=== PATIENT | female | born 1955 | race American Indian/Alaskan Native ===

== ENCOUNTER 2020-01-06 06:22 | Day surgery (SDC) | payer MEDICARE ==
[~2020-01-06 06:22] MED LIST: CELECOXIB 200 MG CAP PO NR; GABAPENTIN 300 MG CAP PO NR; LACTATED RINGERS 1,000 ML IV SCH; MAGNESIUM OXIDE 400 MG TAB PO SCH; MIDAZOLAM 2 MG/2 ML INJ IV NR; ceFAZolin/Water 2 GM/20 ML 2 GM/20 ML SYRINGE IV NR; fentaNYL 100 MCG/2 ML INJ IV PRN
--- NOTE | 2020-01-06 07:18 | Anesthesia Day of Surgery ---
Anesthesia Day of Surgery - Day of Surgery Patient Examined: Yes Patient H&P Reviewed: Yes Patient is NPO: Yes
--- NOTE | 2020-01-06 07:22 | Anesthesia Consultation ---
Anesthesia Consult and Med Hx Date of service: 01/06/20 - Airway Anesthetic Teeth Evaluation: Edentulous ROM Head & Neck: Adequate Mental/Hyoid Distance: Adequate Mallampati Class: Class II Intubation Access Assessment: Good - Pre-Operative Health Status ASA Pre-Surgery Classification: ASA3 Proposed Anesthetic Plan: General Nerve Block: PEC - Pulmonary Hx Smoking: Yes (SINCE AGE 20; 1 CIG EVERYNIGHT) Hx Respiratory Symptoms: No (Poor ambulation because of CVA; unable to climb stairs) - Central Nervous System CVA: Yes (2014; L SIDE WEAKNESS) Hx Back Pain: Yes (LOWER) Hx Psychiatric Problems: No - Hematic Hx Sickle Cell Disease: Yes (TRAIT) - Other Systems Hx Alcohol Use: Yes Hx Substance Use: No Hx Cancer: Yes Hx Obesity: Yes (BMI 39)
[2020-01-06] MEDS ORDERED: BUPIVACAINE-EPINEPHRINE/PF 0.5%-1:200,000 (30 ML) VIAL INFILTRATI ONE (07:30)
[2020-01-06] MEDS ORDERED: dexAMETHasone 20 MG/5 ML VIAL ONE (07:53)
[2020-01-06] MEDS ORDERED: LIDOCAINE MPF (2%) 20 MG/1 ML VIAL 5 ML ONE (07:53)
[2020-01-06] MEDS ORDERED: fentaNYL 250 MCG/5 ML INJ ONE (07:53)
[2020-01-06] MEDS ORDERED: NEOSTIGMINE 10MG/10 ML INJ MDV ONE (07:53)
[2020-01-06] MEDS ORDERED: SUCCINYLCHOLINE CHLORIDE 200 MG/10 ML INJ MDV ONE (07:53)
[2020-01-06] MEDS ORDERED: ONDANSETRON 4 MG/2 ML INJ ONE (07:53)
[2020-01-06] MEDS ORDERED: GLYCOPYRROLATE 0.4 MG/2 ML INJ ONE (07:53)
[2020-01-06] MEDS ORDERED: propofoL 200 MG/20 ML VIAL IV ONE (07:53)
[2020-01-06] MEDS ORDERED: ROCURONIUM 50 MG/5 ML INJ IV ONE (07:53)
[2020-01-06] MEDS ORDERED: PHENYLEPHRINE/NS 1,000 MCG/10 ML SYRINGE (OR USE) IV ONE (08:00)
[2020-01-06] MEDS ORDERED: METHYLENE BLUE 50 MG/10 ML AMP ONE (08:07)
[2020-01-06] MEDS ORDERED: SODIUM CHLORIDE P/F VIAL 10 ML 10 ML ONE (08:08)
[2020-01-06] MEDS ORDERED: METHYLENE BLUE 50 MG/10 ML AMP IRRIGATION ONE (09:30)
[2020-01-06] MEDS ORDERED: WATER FOR IRRIG STERILE 1,500 ML BOTTLE IR ONE (09:30)
[2020-01-06] MEDS ORDERED: SODIUM CHLORIDE 0.9% P/F 10 ML VIAL INFILTRATI ONE (09:30)
[2020-01-06] MEDS ORDERED: SUGAMMADEX SODIUM 200 MG/2 ML VIAL IV ONE (12:11)
--- NOTE | 2020-01-06 12:16 | Operative Report ---
Operative Report Operative Report: Operative Report: January 06, 2020 Preoperative diagnosis: Left breast cancer of the upper outer quadrant Postoperative diagnosis: Same Procedure: Left partial mastectomy of the upper outer quadrant and SLNB Surgeon: Elda Webb MD Salon Manager: Dr. Garcia Anesthesia: General Findings: Left partial mastectomy with clip present within radiograph specimen; x2 SLNs Complications: None EBL: 50 cc Disposition: PACU in good condition Indications for operative procedure: This is a 64 year old lady with newly diagnosed left breast cancer of the upper outer quadrant, Stage I [id number] ER/NE positive. Recommendations are to proceed with breast conservation. She understands the role of adjuvant radiation therapy and Oncotype DX with findings low risk for recurrence. She wished to proceed with the above procedure. Procedure in detail: Anesthesia placed left pectoral block. Patient was then taken to the operating room. Gen. anesthesia was administered. The left nipple was injected with radioisotope and 1 cc of methylene blue dye. Left breast and axilla were prepped and draped in the normal sterile operative fashion. Timeout was performed. Gamma probe was inserted into the axilla. The area of hot spot was identified. A left axillary incision was made with a 15 blade knife with dissection taken down to the subcutaneous tissues. The axillary fascia was opened with the Bovie cautery. 2 SLNs were identified. All remaining counts were less than 10% of the highest count. Lymph nodes were sent to pathology for permanent processing. Hemostasis was obtained in the left axillary cavity. Axillary cavity was appropriately irrigated and suctioned. Hemostasis was noted. Axillary fascia was approximated and closed using interrupted 3-0 Vicryl and the skin brought together and closed using a running 4-0 Monocryl followed by skin affix. Attention was then taken towards the left breast. Ultrasound was used to identify the known cancer at the 2:00 position. A skin incision was made with a 10 blade knife and dissection taken down to subcutaneous tissues. First began raising of the medial flap with dissection taken down to the pectoralis muscle, followed by raising of the superior flap, lateral flap and inferior flap with all flaps taken down to the pectoralis muscle. The breast area of concern was appropriately removed posteriorly from the pectoralis muscle with the aid of the Bovie cautery. Specimen was marked and then sent to pathology and radiology; rad iograph specimen with clip present. Breast cavity was irrigated and hemostasis was obtained. The posterior deep breast tissues were approximated and closed using interrupted 3-0 Vicryl. The subcutaneous tissues were approximated and closed using interrupted 3-0 Vicryl followed by closing of the skin with a running 4-0 Monocryl and skin affix. The patient tolerated surgery very well and she was awaken from anesthesia without any complication and transported to PACU in good condition.
--- NOTE | 2020-01-06 12:20 | Short Stay Summary ---
Short Stay Documentation Date of service: 01/06/20 - History H&P: obtained from office - Allergies and Medications Current Medications: Allergies No Known Allergies Allergy (Verified 12/28/19 15:37) Home Medications Medication Instructions Recorded Confirmed Last Taken Type Aspirin EC [Halfprin EC] 81 mg PO QDAY 12/28/19 01/06/20 12/29/19 History oxyCODONE [roxiCODONE] 5 mg PO Q6HR PRN 12/28/19 01/06/20 01/05/20 History Active Medications Celecoxib (Celebrex) 200 mg PO PREOP NR Stop: 01/06/20 18:00 Last Admin: 01/06/20 07:40 Dose: 200 mg Documented by: Fentanyl (Sublimaze) 100 mcg IV ONCE PRN PRN Reason: sedation for nerve block Last Admin: 01/06/20 08:00 Dose: 100 mcg Documented by: Gabapentin (Gabapentin) 600 mg PO PREOP NR Stop: 01/06/20 18:00 Last Admin: 01/06/20 07:40 Dose: 600 mg Documented by: Cefazolin Sodium (Ancef/Sterile Water 2 Gm/20 Ml) 2 gm in 20 mls @ 80 mls/hr IV PREOP NR; Protocol Stop: 01/06/20 23:59 Lactated Ringer's (Lactated Ringers) 1,000 mls @ 100 mls/hr IV DIRECT DEB Last Admin: 01/06/20 07:45 Dose: 100 mls/hr Documented by: Magnesium Oxide (Mag-Ox) 400 mg PO PREOP DEB Stop: 01/06/20 18:00 Last Admin: 01/06/20 07:40 Dose: 400 mg Documented by: Midazolam HCl (Versed) 2 mg IV PREOP NR Stop: 01/06/20 18:00 Last Admin: 01/06/20 08:00 Dose: 2 mg Documented by: - Brief post op/procedure progress note Date of procedure: 01/06/20 Pre-op diagnosis: Left breast cancer of the upper outer quadrant Post-op diagnosis: same Procedure: Left partial mastectomy with SLNB Anesthesia: GETA Findings: Left breast clip present; x2 SLNs Surgeon: ZOILA EDWARDS Estimated blood loss: minimal Pathology: list (left partial mastectomy; x2SLN) Specimen disposition: to lab Condition: stable - Disposition Condition at discharge: Good Disposition: DC-01 TO HOME OR SELFCARE Short Stay Discharge Plan Activity: other (no heavy lifting) Diet: regular Wound: keep clean and dry (may shower in 48 hours; wear breast binder; no heavy lifting; no baths) Follow up with: MARIA VICTORIA JANE MD [Primary Care Provider] - 7 Days ZOILA EDWARDS MD [Staff Physician] - 7 Days
[2020-01-06 12:55] VITALS: BP 134/80
[2020-01-06] MEDS ORDERED: HYDROcodone/ACETAMINOPHEN 5-325 MG TAB PO PRN (12:57)
--- NOTE | 2020-01-06 14:06 | Post Anesthesia Evaluation ---
- Post Anesthesia Evaluation Patient Participated: Yes Airway Patent: Yes Stable Respiratory Function: Yes Nausea/Vomiting: No Temp > 96.8F: Yes Pain Manageable: Yes Adequeate Hydration: Yes Anesthesia Complications: No
--- NOTE | 2020-01-09 08:34 | Mammography Report ---
SPECIMEN RADIOGRAPH LEFT BREAST INDICATION: POST EXC BX. COMPARISON: No relevant prior imaging study available. FINDINGS: A single biopsy clip is identified within the specimen. IMPRESSION: 1. Excision of the known cancer.. Signer Name: Hector Early MD Signed: 01/09/2020 8:29 AM Workstation Name: [id number]
== END 2020-01-06 06:23 | disposition home or self-care (01) ==
LOC: OR 06:22
PROVIDERS: ATTEND Surgery
DX: C50.412 Malignant neoplasm of upper-outer quadrant of left female breast (principal); I89.8 Other specified noninfective disorders of lymphatic vessels and lymph nodes; E66.9 Obesity, unspecified; F17.210 Nicotine dependence, cigarettes, uncomplicated; Z79.899 Other long term (current) drug therapy; Z79.82 Long term (current) use of aspirin; Z86.718 Personal history of other venous thrombosis and embolism; Z68.39 Body mass index [BMI] 39.0-39.9, adult; Z80.8 Family history of malignant neoplasm of other organs or systems; Z80.3 Family history of malignant neoplasm of breast; Z98.890 Other specified postprocedural states; Z86.73 Personal history of transient ischemic attack (TIA), and cerebral infarction without residual deficits
CPT/HCPCS: 19301; 38525; 38792; 76098; 78800; 88307; 88333; 88342; A9541; J0330; J0690; J1100; J2250; J2370; J2405; J2704; J2710; J3010; J7120; Q9968; 64450; 88305; 88341

== ENCOUNTER 2020-01-16 08:35 | Day surgery (SDC) | payer MEDICARE ==
[~2020-01-16 08:35] MED LIST changes: -CELECOXIB 200 MG CAP PO NR; -GABAPENTIN 300 MG CAP PO NR; -LACTATED RINGERS 1,000 ML IV SCH; +LIDOCAINE PF 100 MG/5 ML (CARDIAC SYRINGE) IV ONE; -MAGNESIUM OXIDE 400 MG TAB PO SCH; -MIDAZOLAM 2 MG/2 ML INJ IV NR; +ONDANSETRON 4 MG/2 ML INJ ONE; +PHENYLEPHRINE/NS 1,000 MCG/10 ML SYRINGE (OR USE) IV ONE; +dexAMETHasone 20 MG/5 ML VIAL ONE; -fentaNYL 100 MCG/2 ML INJ IV PRN; +fentaNYL 100 MCG/2 ML INJ ONE; +propofoL 200 MG/20 ML VIAL IV ONE
[2020-01-16] MEDS ORDERED: ROCURONIUM 50 MG/5 ML INJ IV ONE (09:00)
--- NOTE | 2020-01-16 09:23 | Anesthesia Consultation ---
Anesthesia Consult and Med Hx Date of service: 01/16/20 - Airway Anesthetic Teeth Evaluation: Dentures ROM Head & Neck: Adequate Mental/Hyoid Distance: Adequate Mallampati Class: Class II Intubation Access Assessment: Good - Pulmonary Exam CTA: Yes - Cardiac Exam Cardiac Exam: RRR - Pre-Operative Health Status ASA Pre-Surgery Classification: ASA3 Proposed Anesthetic Plan: General - Pulmonary Hx Smoking: Yes (SINCE AGE 20; 1 CIG EVERYNIGHT) Hx Respiratory Symptoms: No (Poor ambulation because of CVA; unable to climb stairs) - Central Nervous System CVA: Yes (2014; L SIDE WEAKNESS) Hx Back Pain: Yes (LOWER) Hx Psychiatric Problems: No - Hematic Hx Sickle Cell Disease: Yes (TRAIT) - Other Systems Hx Alcohol Use: Yes Hx Substance Use: No Hx Cancer: Yes Hx Obesity: Yes (BMI 39)
[2020-01-16] MEDS ORDERED: HYDROmorphone 1 MG/1 ML INJ IV PRN (09:24)
--- NOTE | 2020-01-16 09:24 | Anesthesia Day of Surgery ---
Anesthesia Day of Surgery - Day of Surgery Patient Examined: Yes Patient H&P Reviewed: Yes Patient is NPO: Yes
[2020-01-16] MEDS ORDERED: FAMOTIDINE 20 MG TAB PO NR (10:00)
[2020-01-16] MEDS ORDERED: MIDAZOLAM 2 MG/2 ML INJ IV NR (10:00)
[2020-01-16] MEDS ORDERED: LACTATED RINGERS 1,000 ML IV SCH (10:00)
[2020-01-16] MEDS ORDERED: propofoL 200 MG/20 ML VIAL IV ONE (12:42)
[2020-01-16] MEDS ORDERED: fentaNYL 100 MCG/2 ML INJ ONE (12:42)
[2020-01-16] MEDS ORDERED: LIDOCAINE PF 100 MG/5 ML (CARDIAC SYRINGE) IV ONE (12:42)
[2020-01-16] MEDS ORDERED: PHENYLEPHRINE/NS 1,000 MCG/10 ML SYRINGE (OR USE) IV ONE (12:42)
[2020-01-16] MEDS ORDERED: ONDANSETRON 4 MG/2 ML INJ ONE (12:42)
[2020-01-16] MEDS ORDERED: dexAMETHasone 20 MG/5 ML VIAL ONE (12:42)
--- NOTE | 2020-01-16 13:09 | Short Stay Summary ---
Short Stay Documentation Date of service: 01/16/20 - History H&P: obtained from office - Allergies and Medications Current Medications: Allergies No Known Allergies Allergy (Verified 01/13/20 12:30) Home Medications Medication Instructions Recorded Confirmed Last Taken Type Aspirin EC [Halfprin EC] 81 mg PO QDAY 12/28/19 01/13/20 12/29/19 History oxyCODONE [roxiCODONE] 5 mg PO Q6HR PRN 12/28/19 01/13/20 01/05/20 History HYDROcodone/APAP 5-325 [[place] 1 each PO Q6HR PRN #16 tablet 01/06/20 01/13/20 Unknown Rx 5/325] Active Medications Famotidine (Pepcid) 20 mg PO PREOP NR Stop: 01/16/20 16:00 Hydromorphone HCl (Dilaudid) 0.5 mg IV Q10MIN PRN PRN Reason: Pain , Severe (7-10) Stop: 01/16/20 20:00 Cefazolin Sodium (Ancef/Sterile Water 2 Gm/20 Ml) 2 gm in 20 mls @ 80 mls/hr IV PREOP NR; Protocol Stop: 01/16/20 23:59 Lactated Ringer's (Lactated Ringers) 1,000 mls @ 100 mls/hr IV DIRECT DEB Midazolam HCl (Versed) 2 mg IV PREOP NR Stop: 01/16/20 23:59 - Brief post op/procedure progress note Date of procedure: 01/16/20 Pre-op diagnosis: Left breast cancer of upper outer quadrant Post-op diagnosis: same Procedure: Left breast margin revision Anesthesia: GETA Findings: Left inferior and anterior margin revision Surgeon: ZOILA EDWARDS Estimated blood loss: minimal Pathology: list (left breast margin revision) Specimen disposition: to lab Condition: stable - Disposition Condition at discharge: Good Disposition: DC- TO HOME OR SELFCARE Short Stay Discharge Plan Activity: other (no heavy lifting) Diet: regular Wound: keep clean and dry (may shower in 48 hours) Follow up with: MARIA VICTORIA JANE MD [Primary Care Provider] - 7 Days ZOILA EDWARDS MD [Staff Physician] - 7 Days Prescriptions: cephALEXin [Keflex] 500 mg PO Q12HR #10 cap HYDROcodone/APAP 5-325 [[place] 5/325] 1 each PO Q6HR PRN #12 tablet PRN Reason: Pain
--- NOTE | 2020-01-16 13:13 | Operative Report ---
Operative Report Operative Report: Date of Service: January 16, 2020 Preoperative diagnosis:Left breast cancer of the upper outer quadrant Postoperative diagnosis:Same Procedure: Left breast margin revision Surgeon: Elda Webb MD Anesthesia: General Findings: Inferior and anterior margin revision Complications: None EBL: Minimal Disposition: PACU in good condition Indications for operative procedure: This is a 64 year old lady with newly diagnosed Stage I left breast cancer of the upper outer quadrant, [id number] ER/AK positive. She recently underwent left needle localization partial mastecomy with SLND. Anterior margin positive and inferior margin less 0.5 mm from DCIS. Recommendations were to proceed with anterior and inferior margin revision. Patient wished to proceed with the above procedure. Procedure in detail: The patient was taken to the operating room and was placed supine. General anesthesia was administered. The left breast was prepped and draped in the normal sterile operative fashion. Timeout was performed. An elliciptal skin incision was made encompassing prior breast incision with a 15 blade knife. Subcutaneous tissues were opened with the aid of the Bovie cautery and knife. Seroma cavity was encountered and suctioned. Hemostasis was noted. Anterior margin was revised with specimen marked. Attention was then taken towards the inferior margin, allice clamp was used to grasp the inferior margin with area scored using the bovie cautery. The inferior margin was then revised using the Bovie cautery. Specimen was marked and sent to pathology. Hemostasis was obtained with the Bovie cautery. The deep breast tissue was approximated and closed using interrupted 3-0 Vicryl and skin brought together and closed using a running 4-0 Monocryl followed by skin affix. She tolerated surgery very well and was awaken from anesthesia without any complications and transported to PACU in good condition.
[2020-01-16] MEDS ORDERED: LIDOCAINE (1%) 10 MG/1 ML VIAL 20 ML MDV ONE (13:36)
[2020-01-16] MEDS ORDERED: BUPIVACAINE/PF (0.25%) 2.5 MG/ML 30 ML VIAL INFILTRATI ONE ×2 (13:36→13:49)
[2020-01-16] MEDS ORDERED: LIDOCAINE (1%) 10 MG/1 ML VIAL 20 ML MDV INFILTRATI ONE (13:48)
[2020-01-16] MEDS ORDERED: WATER FOR IRRIG STERILE 1,500 ML BOTTLE IR ONE (13:48)
[2020-01-16] MEDS ORDERED: HYDROcodone/ACETAMINOPHEN 5-325 MG TAB PO PRN (15:24)
[2020-01-16 16:27] VITALS: BP 125/75
== END 2020-01-16 16:10 | disposition home or self-care (01) ==
LOC: OR 08:35
PROVIDERS: ATTEND Surgery
DX: C50.412 Malignant neoplasm of upper-outer quadrant of left female breast (principal); F17.210 Nicotine dependence, cigarettes, uncomplicated; Z72.89 Other problems related to lifestyle; Z79.899 Other long term (current) drug therapy; Z86.73 Personal history of transient ischemic attack (TIA), and cerebral infarction without residual deficits; Z86.718 Personal history of other venous thrombosis and embolism; Z85.3 Personal history of malignant neoplasm of breast; Z90.12 Acquired absence of left breast and nipple; Z80.3 Family history of malignant neoplasm of breast; Z98.890 Other specified postprocedural states; Z80.8 Family history of malignant neoplasm of other organs or systems
CPT/HCPCS: 19301; 88307; J0690; J1100; J1170; J2001; J2370; J2405; J2704; J3010; J7120; J2250

== ENCOUNTER 2020-04-11 16:00 | Observation (INO) | payer MEDICARE ==
--- NOTE | 2020-04-09 12:43 | Anesthesia Consultation ---
Anesthesia Consult and Med Hx Date of service: 04/09/20 - Airway Anesthetic Teeth Evaluation: Dentures (upper and lower) ROM Head & Neck: Adequate Mental/Hyoid Distance: Adequate Mallampati Class: Class II Intubation Access Assessment: Probably Good (previous easy intubation with MAC 3) - Pulmonary Exam CTA: Yes - Cardiac Exam Cardiac Exam: RRR - Pre-Operative Health Status ASA Pre-Surgery Classification: ASA3 Proposed Anesthetic Plan: General Nerve Block: PEC - Pulmonary Hx Smoking: Yes Hx Respiratory Symptoms: No - Cardiovascular System Hx Hypertension: No Hx Heart Attack/AMI: No Hx Percutaneous Transluminal Coronary Angioplasty (PTCA): No - Central Nervous System CVA: Yes (L sided weakness and problems with balance) Hx Back Pain: Yes - Gastrointestinal Hx Gastroesophageal Reflux Disease: No - Endocrine Hx Renal Disease: No Hx Liver Disease: No Hx Insulin Dependent Diabetes: No Hx Non-Insulin Dependent Diabetes: No Hx Thyroid Disease: No - Other Systems Hx Alcohol Use: Yes Hx Substance Use: No Hx Cancer: Yes (breast) Hx Obesity: Yes (BMI 36) - Additional Comments Anesthesia Medical History Comments: Hx DVT 2016, no longer on anticoagulation.
[2020-04-09 16:19] LABS: Hematocrit 32.7 % (30.3-42.9); Hemoglobin 11.5 gm/dl (10.1-14.3); Mean Corpuscular HGB Conc 35 % (30-34); Mean Corpuscular Volume 75 fl (79-97); Platelet Count 246 K/mm3 (140-440); Red Blood Count 4.35 M/mm3 (3.65-5.03); Red Cell Distribution Width 18.8 % (13.2-15.2)
--- NOTE | 2020-04-11 13:53 | Anesthesia Day of Surgery ---
Anesthesia Day of Surgery - Day of Surgery Patient Examined: Yes Patient H&P Reviewed: Yes Patient is NPO: Yes
[~2020-04-11 16:00] MED LIST changes: +BACITRACIN 50,000 UNIT VIAL ONE; +BUPIVACAINE-EPINEPHRINE/PF 0.5%-1:200,000 (30 ML) VIAL INFILTRATI ONE; +CELECOXIB 200 MG CAP PO NR; +GABAPENTIN 300 MG CAP PO NR; +GENTAMICIN 40 MG/ML VIAL 2 ML ONE; +LACTATED RINGERS 1,000 ML IV SCH; +LACTATED RINGERS 1,000 ML ONE; -LIDOCAINE PF 100 MG/5 ML (CARDIAC SYRINGE) IV ONE; +MAGNESIUM OXIDE 400 MG TAB PO SCH; +METHYLENE BLUE 50 MG/10 ML AMP ONE; +MIDAZOLAM 2 MG/2 ML INJ IV NR; -PHENYLEPHRINE/NS 1,000 MCG/10 ML SYRINGE (OR USE) IV ONE; +ROCURONIUM 50 MG/5 ML INJ IV ONE; +SODIUM CHLORIDE 0.9% 1000 ML 1,000 ML ONE; +ceFAZolin 1 GM VIAL ONE; -dexAMETHasone 20 MG/5 ML VIAL ONE; +dexAMETHasone 4 MG/ML VIAL ONE; +fentaNYL 100 MCG/2 ML INJ IV PRN
[2020-04-11] MEDS ORDERED: WATER FOR IRRIG STERILE 1,500 ML BOTTLE IR ONE (16:14)
[2020-04-11] MEDS ORDERED: ceFAZolin 1 GM VIAL IR ONE (17:37)
[2020-04-11] MEDS ORDERED: SODIUM CHLORIDE 0.9% IRR 1,500 ML BOTTLE IR ONE (17:37)
[2020-04-11] MEDS ORDERED: BACITRACIN 50,000 UNIT VIAL IR ONE (17:38)
[2020-04-11] MEDS ORDERED: GENTAMICIN 40 MG/ML VIAL 2 ML IV ONE (17:39)
[2020-04-11] MEDS ORDERED: diphenhydrAMINE 25 MG CAP PO PRN (17:40)
[2020-04-11] MEDS ORDERED: METOCLOPRAMIDE 10 MG TAB PO PRN (17:40)
[2020-04-11] MEDS ORDERED: ACETAMINOPHEN 325 MG TAB PO PRN (17:40)
[2020-04-11] MEDS ORDERED: ONDANSETRON 4 MG/2 ML INJ IV PRN (17:40)
[2020-04-11] MEDS ORDERED: MORPHINE 2 MG/1 ML INJ IV PRN (17:41)
--- NOTE | 2020-04-11 17:50 | Operative Report ---
Operative Report Operative Report: Operative Report: Date of Service:April 11, 2020 Preoperative diagnosis: Left breast cancer of the upper outer quadrant Postoperative diagnosis: Same Procedure: Left total mastectomy Surgeon: Elda Webb M.D. [employer] Commerce Marketing Manager: Shanthi Iqbal D.O. Anesthesia: Gen. Findings: Left seroma cavity and scar from recent surgery noted Complications: None Drains: per plastic surgery Estimated blood loss: 50-100 cc Disposition: Plastic surgery proceeded with left tissue nurse clinical placement Indications for operative procedure: This is a 65-year-old lady with newly diagnosed left breast cancer IDCA of the upper outer quadrant, [id number] ER/DC positive. She recently underwent a left partial mastectomy with sentinel node biopsy. Final pathology with findings of sentinel lymph node negative for malignancy, left partial mastectomy invasive ductal carcinoma and positive margin. Recommendations were to proceed with left breast margin revision versus total mastectomy. Patient wished to proceed with a margin revision. She then underwent left surgical margin revision and final pathology with positive revised margin. Recommendations were to proceed with a left total mastectomy given additional disease present from margin revision with positive margins. Patient agreed and wished to proceed with a left mastectomy and immediate tissue nurse clinical placement by plastic surgery. Oncotype DX low risk for breast cancer recurrence. Procedure in detail: Anesthesia placed left pectoral muscle block prior to going to the operating room. The patient was taken to the operating room and was placed supine. Gen. anesthesia was administered. Bilateral breasts and left axilla was prepped and draped in the normal sterile operative fashion. Timeout was performed. Typical mastectomy incision marking was made. Attention was taken towards the left breast. A skin incision was made with a 10 blade knife and dissection taken down to the subcutaneous tissues. First began raising of the superior flap to the level of the clavicle superiorly and posteriorly to the pectoralis muscle. Followed by raising of the medial flap to the level of the sternum and posteriorly to the pectoralis muscle. Followed by raising of the lateral flap to the level of the latissimus dorsi muscle and taken down posteriorly. Then proceeded with raising of the inferior flap to the level of the inframammary fold taken posterior to the pectoralis muscle. Seroma cavity and scar tissue was noted from recent surgery around the 3:00 position. The mastectomy/breast was removed from the pectoralis muscle without incident. The specimen was appropriately marked and sent to pathology. Hemostasis was obtained using bovie cautery. The chest wall was irrigated and suctioned. Hemostasis was present. Plastic surgery then proceeded with tissue nurse clinical placement. She tolerated surgery very well.
--- NOTE | 2020-04-11 17:52 | Short Stay Summary ---
Short Stay Documentation Date of service: 04/11/20 - History H&P: obtained from office - Allergies and Medications Current Medications: Allergies No Known Allergies Allergy (Verified 04/02/20 11:28) Home Medications Medication Instructions Recorded Confirmed Last Taken Type Aspirin EC [Halfprin EC] 81 mg PO QDAY 12/28/19 04/09/20 04/02/20 History oxyCODONE [roxiCODONE] 5 mg PO Q6HR PRN 12/28/19 04/11/20 04/11/20 07:00 History Pregabalin [Lyrica] 75 mg PO BID 04/02/20 04/11/20 04/10/20 09:00 History Active Medications Acetaminophen (Tylenol) 650 mg PO Q6H PRN PRN Reason: Pain MILD(1-3)/Fever >100.5/SANTOS Celecoxib (Celebrex) 200 mg PO PREOP NR Stop: 04/11/20 21:00 Last Admin: 04/11/20 12:06 Dose: 200 mg Documented by: Diphenhydramine HCl (Benadryl) 25 mg PO Q8H PRN PRN Reason: Itching Docusate Sodium (Colace) 100 mg PO BID DEB Fentanyl (Sublimaze) 100 mcg IV ONCE PRN PRN Reason: sedation for nerve block Stop: 04/11/20 21:00 Last Admin: 04/11/20 14:14 Dose: 100 mcg Documented by: Gabapentin (Gabapentin) 300 mg PO PREOP NR Stop: 04/11/20 21:00 Last Admin: 04/11/20 12:06 Dose: 300 mg Documented by: Cefazolin Sodium (Ancef/Sterile Water 2 Gm/20 Ml) 2 gm in 20 mls @ 80 mls/hr IV PREOP NR; Protocol Stop: 04/11/20 23:00 Lactated Ringer's (Lactated Ringers) 1,000 mls @ 100 mls/hr IV DIRECT DEB Last Admin: 04/11/20 12:25 Dose: 100 mls/hr Documented by: Lactated Ringer's (Lactated Ringers) 1,000 mls @ 125 mls/hr IV DIRECT DEB Magnesium Oxide (Mag-Ox) 400 mg PO PREOP DEB Stop: 04/11/20 21:00 Last Admin: 04/11/20 12:06 Dose: 400 mg Documented by: Metoclopramide HCl (Reglan) 10 mg PO Q6H PRN PRN Reason: Nausea And Vomiting Midazolam HCl (Versed) 2 mg IV PREOP NR Stop: 04/11/20 21:00 Last Admin: 04/11/20 14:14 Dose: 2 mg Documented by: Morphine Sulfate (Morphine) 2 mg IV Q4H PRN PRN Reason: Pain, Moderate (4-6) Ondansetron HCl (Zofran) 4 mg IV Q8H PRN PRN Reason: N/V unrelieved by Reglan Oxycodone/Acetaminophen (Percocet 5/325) 2 tab PO Q6H PRN PRN Reason: Pain, Moderate (4-6) Sodium Chloride (Sodium Chloride Flush Syringe 10 Ml) 10 ml IV PRN PRN PRN Reason: LINE FLUSH - Physical exam Extremities: normal color - Brief post op/procedure progress note Date of procedure: 04/11/20 Pre-op diagnosis: Left breast cancer UOQ Post-op diagnosis: same Procedure: Left total mastectomy Anesthesia: GETA Findings: Left breast scar from recent surgery Surgeon: ZOILA EDWARDS Universal Banker: SOM OREILLY Estimated blood loss: 50-100ml Pathology: list (left total mastectomy) Specimen disposition: to lab Condition: stable - Disposition Condition at discharge: Good Disposition: DC/TX-02 SHRT-TRM GEN HOSP IP Short Stay Discharge Plan Activity: other (no heavy lifting) Diet: regular Wound: keep clean and dry (no baths, showers; wear breast binder) Follow up with: MARIA VICTORIA JANE MD [Primary Care Provider] - 7 Days
[2020-04-11] MEDS ORDERED: LACTATED RINGERS 1,000 ML IV SCH (18:00)
[2020-04-11] MEDS ORDERED: dexAMETHasone 20 MG/5 ML VIAL ONE (18:34)
[2020-04-11] MEDS ORDERED: fentaNYL 100 MCG/2 ML INJ IV PRN (18:45)
--- NOTE | 2020-04-11 19:21 | Operative Report ---
Operative Report Operative Report: Plastic Surgery Operative Note Surgeon: Shawna Hartman MD Tour Manager: None Preoperative Diagnosis: Acquired absence of the left breast and nipple; Malignant neoplasm of the left breast Postoperative Diagnosis: Same Procedure: Left breast reconstruction with tissue soda dispenser placement and FlexHD acellular dermal matrix. Anesthesia: General EBL: Minimal Indications: This patient is a 65 year old AAF who is scheduled for a left mastectomy and desired reconstruction. We discussed her options including autologous tissue transfer and she was interested in the least complex reconstructive route possible. So we planned for tissue soda dispenser placement with the use of acellular dermal matrix. The benefits as well as the risks of the procedure were discussed with the patient, including but not limited to infection, bleeding, hematoma, seroma, wound dehiscence, implant rupture, need for further surgery including planned stages and additional reconstruction. The patient understands and accepts these risks and desires to proceed with surgery. Procedure: After review of pertinent history and physical exam findings the patient was brought into the operating room and placed supine on the OR table. After induction of adequate general anesthesia the entire chest was prepped and draped in the usual sterile surgical fashion. To begin, Dr. Elda Webb performed the left mastectomy and this procedure is dictated under a separate operative note. When this was completed, the breast reconstruction was started on the right breast. Of note, a small "buttonhole" in the mastectomy flaps in the region of previous biopsy was created inadvertently and the plan was for primary closure during the reconstruction. Using electrocautery we dissected a submuscular pocket behind pectoralis muscle to accommodate the tissue soda dispenser. The pocket was thoroughly irrigated with triple antibiotic solution and we began re-creating the inframammary border using Flex HD perforated contoured, a total size of 9x15cm. The inferior aspect of the Flex HD was secured to the chest fascia using 2-0 PDS suture. This was followed by placement of the tissue soda dispenser, Wendell Siltex 800cc, in the submuscular pocket. Following this inferior border of the pectoralis fascia was secured to the superior border of the FlexHD also using 2-[address] 15 [place] Be drain was placed in the subcutaneous space and both were secured using 2-0 Nylon suture. Using the magnet finder from the tissue soda dispenser package, the injection port was identified and 400cc of methylene blue-tinged injectable saline was added to the implant. We then began a 3-layered closure using 2-0 Monocryl and 3-0 Monoderm Quill [id number] suture, of the buttonhole as well. This was followed by Dermabond glue and then Telfa with tegaderm, followed by bra binder. Patient was then awakened from general anesthesia and transferred to the recovery room instable condition. All sponge, needle and instrument counts were correct at the end of the case.
[2020-04-11] MEDS ORDERED: fentaNYL 100 MCG/2 ML INJ ONE (19:31)
[2020-04-11] MEDS ORDERED: DOCUSATE SODIUM 100 MG CAP PO SCH (22:00)
[2020-04-12] MEDS: oxyCODONE /ACETAMINOPHEN 5-325MG TAB PO PRN ×2 (00:27→09:29)
--- NOTE | 2020-04-12 07:43 | Progress Note ---
Subjective Date of service: 04/12/20 Interval history: Plastic Surgery Progress Ms. Sykes is up and awake in bed, comfortable. She reports having ambulated to the restroom and voiding without difficulty. She denies nausea or vomiting, no cp, sob. Pain is well controlled. AFVSS NATALEE Serosanguinous and appropriate output Left chest: mastectomy flaps viable, no hematoma or seroma, no evidence of infection. Dressings c/d/i. 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 NATALEE drain care teaching. Prescriptions given. Discharge today in the care of her . Follow up 04/17/20 at 1pm. Objective - Constitutional Vitals: Vital Signs - 12hr 04/11/20 04/11/20 04/11/20 19:45 20:00 20:15 Temperature 98.2 F Pulse Rate 65 90 89 Respiratory 13 14 15 Rate Respiratory Rate [Left Chest] Blood Pressure 130/73 126/76 129/75 O2 Sat by Pulse 100 96 96 Oximetry 04/11/20 04/12/20 04/12/20 20:30 00:01 00:27 Temperature 98.2 F 97.7 F Pulse Rate 78 110 H Respiratory 14 20 18 Rate Respiratory 18 Rate [Left Chest] Blood Pressure 113/66 129/73 O2 Sat by Pulse 96 94 Oximetry 04/12/20 04:21 Temperature 97.6 F Pulse Rate 86 Respiratory 20 Rate Respiratory Rate [Left Chest] Blood Pressure 111/54 O2 Sat by Pulse 93 Oximetry - Labs CBC & Chem 7: 04/09/20 11:45 Medications & Allergies - Medications Allergies/Adverse Reactions: Allergies No Known Allergies Allergy (Verified 04/02/20 11:28) Home Medications: Home Medications Medication Instructions Recorded Confirmed Last Taken Type Aspirin EC [Halfprin EC] 81 mg PO QDAY 12/28/19 04/09/20 04/02/20 History oxyCODONE [roxiCODONE] 5 mg PO Q6HR PRN 12/28/19 04/11/20 04/11/20 07:00 History Pregabalin [Lyrica] 75 mg PO BID 04/02/20 04/11/20 04/10/20 09:00 History Active Medications: Generic Name Dose Route Start Last Admin Trade Name Freq PRN Reason Stop Dose Admin Acetaminophen 650 mg 04/11/20 17:40 Tylenol PO Q6H PRN Pain MILD(1-3)/Fever >100.5/SANTOS Diphenhydramine HCl 25 mg 04/11/20 17:40 Benadryl PO Q8H PRN Itching Docusate Sodium 100 mg 04/11/20 22:00 Colace PO BID DEB Lactated Ringer's 1,000 mls @ 100 mls/hr 04/11/20 12:00 04/11/20 12:25 Lactated Ringers IV 100 mls/hr DIRECT DEB Administration Lactated Ringer's 1,000 mls @ 125 mls/hr 04/11/20 18:00 Lactated Ringers IV DIRECT DEB Metoclopramide HCl 10 mg 04/11/20 17:40 Reglan PO Q6H PRN Nausea And Vomiting Morphine Sulfate 2 mg 04/11/20 17:41 Morphine IV Q4H PRN Pain, Moderate (4-6) Ondansetron HCl 4 mg 04/11/20 17:40 Zofran IV Q8H PRN N/V unrelieved by Reglan Oxycodone/Acetaminophen 2 tab 04/11/20 17:40 04/12/20 00:27 Percocet 5/325 PO 2 tab Q6H PRN Administration Pain, Moderate (4-6) Sodium Chloride 10 ml 04/11/20 17:40 Sodium Chloride Flush Syringe 10 Ml IV PRN PRN LINE FLUSH
[2020-04-12 10:24] VITALS: BP 107/59
== END 2020-04-12 10:53 | disposition home or self-care (01) ==
LOC: OR 16:00 → OB 17:40
PROVIDERS: ADMIT Plastic Surgery; ATTEND Plastic Surgery
DX: Z03.818 Encounter for observation for suspected exposure to other biological agents ruled out (principal); C50.412 Malignant neoplasm of upper-outer quadrant of left female breast
CPT/HCPCS: 19303; 19357; 36415; 64450; 85027; 88309; 96374; 96375; C1789; G0378; J0690; J1100; J1580; J2250; J2405; J2704; J3010; J7030; J7120; Q4128; Q9968; U0003; 88307